=== PATIENT | female | born 2000 | race Hispanic/Latino ===

== ENCOUNTER 2024-01-11 16:11 | Inpatient (IN) | payer OTHER ==
[~2024-01-11] VITALS: Ht 162.6 cm; Wt 95.7 kg
--- NOTE | ~2024-01-11 | OR ---
[facility] [address] [place], [place] [address] Draft DATE OF OPERATION: 01/18/2024 SURGEON: Carie Haynes DO PREOPERATIVE DIAGNOSES: 1. Intrauterine at 39 weeks gestation. 2. History of prior section. POSTOPERATIVE DIAGNOSES: 1. Intrauterine at 39 weeks gestation. 2. History of prior section. PROCEDURE PERFORMED: Repeat low transverse delivery. ANESTHESIA: Spinal with postoperative TAP block. SPINNING MULE OPERATOR: Gayla Morris MD. ESTIMATED BLOOD LOSS: 700 mL. COMPLICATIONS: None. SPECIMEN: None. DRAINS: Pereira to gravity. COMPLICATIONS: None. FINDINGS: Delivery of viable male , 7 pounds 3 ounces with Apgars of 8 and 9 born in the YOAV position with no nuchal cord and clear fluid via low transverse uterine incision. Normal uterus, tubes, and ovaries appreciated. PATIENT NAME: MARCO ZUNIGA OPERATIVE REPORT DATE OF : 02 REPORT #: [id number] PHYSICIAN: CARIE HAYNES (CHARLA) PCP: CARIE HAYNES (CHARLA) REPORT IS CONFIDENTIAL AND NOT TO BE RELEASED WITHOUT AUTHORIZATION [facility] [address] [place], [place] [address] Draft INDICATIONS: Ms. Zuniga is a very pleasant 23-year-old, G2, P1 with IUP at 39 weeks gestation, who presents for repeat low transverse delivery. Risks, benefits, and alternatives were discussed in detail with the patient. The patient understands and wishes to proceed with the procedure. PROCEDURE IN DETAIL: The patient was taken the OR. A time-out was performed to confirm correct patient, correct procedure. Spinal anesthesia was adequately established. The patient was prepped and draped in dorsal lithotomy position with her feet in Yellofin stirrups. ICPs were on and running and no preoperative heparin was indicated, although patient did receive Ancef 2 g preoperatively per SCIP protocol. Once spinal was noted to be adequate, a Pfannenstiel skin incision was made through the prior scar and carried down to the fascia. The fascia was nicked in the midline with surgical scalpel and extended bilaterally using curved Meza scissors. The fascia was grasped with Gaby's, elevated, and the underlying rectus muscle dissected off bluntly and sharply. The rectus was divided in the midline. The peritoneum was entered bluntly. Peritoneal incision was extended cephalad, caudad using blunt and sharp dissection. No pelvic adhesions were noted and the lower uterine segment was identified. An Massimo self-retractor was placed without difficulty and hysterotomy was performed using a surgical scalpel. Clear amniotic fluid was noted and hysterotomy was extended bilaterally using blunt dissection. The surgeon's hand was placed in the uterine cavity and the head delivered with the assistance of fundal pressure into the abdomen. The remainder of the delivered easily and was vigorous and cried upon delivery. Cord was doubly clamped, cut, and the handed to the waiting pediatric team for further care. Cord blood was obtained for routine analysis. The placenta was expressed, intact with a centrally inserted three-vessel cord. An initial gush of blood was noted and this was quickly made hemostatic with bimanual pressure. Pitocin per protocol and clamping. The uterus was then cleared of any remaining products of conception or clot. Hysterotomy was repaired in two layers of 0 Monocryl. The first being a running locked layer and the second being a running nonlocked imbricating layer in the vertical manner. Excellent hemostasis was appreciated. The pelvis was irrigated and found to be hemostatic. Normal uterus, tubes, and ovaries were appreciated. The Massimo self retractor was removed and peritoneum was reapproximated using 2-0 Vicryl in a running nonlocked manner. Rectus was made hemostatic with judicious use of Bovie electrocautery and rectus was plicated in the midline with #0 Vicryl sutures in three interrupted stitches. The fascia was reapproximated using 0 Vicryl in a running nonlocked manner. Subcu was irrigated, made hemostatic with judicious use of Bovie electrocautery and then closed with a running suture of 3-0 Vicryl. Skin was then reapproximated using surgical sarmad. The uterus was Crede'd for scant amount of blood and the patient remained in the PACU for postoperative TAP block per Anesthesia. PATIENT NAME: MARCO ZUNIGA OPERATIVE REPORT DATE OF : 02 REPORT #: [id number] PHYSICIAN: CARIE HAYNES (CHARLA) PCP: ACRIE HAYNES (CHARLA) DO REPORT IS CONFIDENTIAL AND NOT TO BE RELEASED WITHOUT AUTHORIZATION [address] [address] Draft Sponge, needle, and instrument counts were correct x2 at the end of the procedure. Dr. Morris was present and participated in all portions of the procedure. DO CHRIS Sotelo/DOT /[id number] Copies: ~ PATIENT NAME: MARCO ZUNIGA OPERATIVE REPORT DATE OF : 02 REPORT #: [id number] PHYSICIAN: CARIE HAYNES (CHARLA) PCP: CARIE HAYNES (CHARLA) REPORT IS CONFIDENTIAL AND NOT TO BE RELEASED WITHOUT AUTHORIZATION
[2024-01-18] MEDS ORDERED: LACTATED RINGER'S 1,000 ML IV SCH ×2 (05:00→09:25)
[2024-01-18] MEDS ORDERED: LACTATED RINGER'S 2,000 ML IV PRN (05:00)
[2024-01-18 05:33] VITALS: BP 126/85
[2024-01-18 05:40] LABS: HEMATOCRIT 34.5 % (35.0-50.0); HEMOGLOBIN 11.3 g/dL (12.0-18.0); MCH 27.2 (27-36); MCHC 32.7 g/dl (30-36); MCV 83.1 fl (81-99); RBC 4.16 M/ul (4.3-5.7); RDW 15.2 (10.5-15.0)
[2024-01-18 06:13] LABS: ABO O; ANTIBODY SCREEN NEGATIVE; RH POSITIVE
[2024-01-18 06:14] LABS: AMPHETAMINES, URINE NEGATIVE (NEGATIVE); BARBITURATES, URINE NEGATIVE (NEGATIVE); BENZODIAZEPINE, URINE NEGATIVE (NEGATIVE); BUPRENORPHINE, URINE NEGATIVE (NEGATIVE); CANNABINOID, URINE NEGATIVE (NEGATIVE); COCAINE, URINE NEGATIVE (NEGATIVE); ECSTASY, URINE NEGATIVE (NEGATIVE); FENTANYL, URINE NEGATIVE (NEGATIVE); METHADONE, URINE NEGATIVE (NEGATIVE); OPIATES, URINE NEGATIVE (NEGATIVE); OXYCODONE, URINE NEGATIVE (NEGATIVE); PHENCYCLIDINE, URINE NEGATIVE (NEGATIVE)
[2024-01-18] MEDS ORDERED: SOD+POT BICARB/CITRIC ACID 2 EA TABLET.EFF PO SCH (07:00)
[2024-01-18] MEDS ORDERED: CEFAZOLIN SODIUM 2 GM/20 ML SYR IV SCH (07:00)
[2024-01-18] MEDS ORDERED: MORPHINE SULFATE 1 MG/ML VIAL ONE (07:09)
[2024-01-18] MEDS ORDERED: fentaNYL citrate 100 MCG/2 ML VIAL ONE (07:09)
[2024-01-18] MEDS ORDERED: BUPIVACAINE 0.75% IN DEXTROSE 2 ML AMP ONE (07:09)
[2024-01-18] MEDS ORDERED: LIDOCAINE HCL 2% 5 ML SDV ONE (07:10)
[2024-01-18] MEDS ORDERED: OXYTOCIN 10 UNITS/ML VIAL ONE (07:10)
[2024-01-18] MEDS ORDERED: ondansetron HCL 4 MG/2 ML VIAL ONE (07:10)
[2024-01-18] MEDS ORDERED: Ropivacaine HCl 0.5% 30 ML VIAL ONE (08:25)
[2024-01-18] MEDS ORDERED: DEXAMETHASONE SOD PHOS 4 MG/ML VIAL ONE (08:25)
[2024-01-18] MEDS ORDERED: SODIUM CHLORIDE 0.9% 40 ML IV ONE (08:25)
[2024-01-18] MEDS ORDERED: dexmedeTOMIDine HCl 200 MCG/2 ML VIAL ONE (08:25)
[2024-01-18] MEDS ORDERED: OXYCODONE HCL 5 MG TAB PO PRN (09:30)
[2024-01-18] MEDS ORDERED: bisacodyL 10 MG SUPP PR PRN (09:30)
[2024-01-18] MEDS ORDERED: OXYCODONE/APAP 5/325 TAB PO PRN (09:30)
[2024-01-18] MEDS ORDERED: PROCHLORPERAZINE EDISYLATE 10 MG/2 ML VIAL IV PRN (09:30)
[2024-01-18] MEDS ORDERED: METOCLOPRAMIDE HCL 10 MG/2 ML SDV IV PRN (09:30)
[2024-01-18] MEDS ORDERED: OXYTOCIN/0.9 % SODIUM CHLORIDE 500 ML IV SCH (09:30)
[2024-01-18] MEDS ORDERED: HYDROCODONE/ACETA 5/325 TAB PO PRN (09:30)
[2024-01-18] MEDS ORDERED: PROMETHAZINE HCL 25 MG TAB PO PRN (09:30)
[2024-01-18] MEDS ORDERED: PROMETHAZINE HCL 25 MG SUPP PR PRN (09:30)
[2024-01-18 09:42] VITALS: BP 97/54
[2024-01-18] MEDS ORDERED: fentaNYL citrate 50 MCG/ML SDV IV PRN (09:45)
[2024-01-18] MEDS ORDERED: diphenhydrAMINE HCL 50 MG/ML VIAL IV PRN ×2 (09:45)
[2024-01-18] MEDS ORDERED: HYDROmorphone HCL 1 MG/ML SYR IV PRN (09:45)
[2024-01-18] MEDS ORDERED: IBLOOD GLUCOSE TEST STRIP 1 EA TEST VI PRN (09:45)
[2024-01-18] MEDS ORDERED: ondansetron HCL 4 MG/2 ML VIAL IV PRN ×2 (09:45)
[2024-01-18] MEDS ORDERED: NALOXONE HCL 0.4 MG SYR IV PRN ×2 (09:45)
--- NOTE | 2024-01-18 10:24 | NUR ---
01/18/24 1024 Sheets,[place] 0910 PT ARRIVED TO ROOM WITH AT BEDSIDE HOLDING BABY. PT DENIES CONCERNS, PT UNABLE TO MOVE HER FEET AND EDUCATION GIVEN. IV IN LEFT HAND AND WNL, LR WITH 30 PIT INFUSING. 0915 BABY TO CHEST WITH [facility] RN. PT CONTINUES TO DENY CONERNS. 0920 SMALL AMOUNT OF DRAINAGE NOTED WITH FUNDAL MASSAGE AND SMALL CLOTS NOTED. SPINAL LEVEL 6-T AND PT DENIES SOB AND DIZZINESS, EDUCAITON GIVEN. PT SIPPING WATER PER REQUEST. 0940 F[facility] RN AT BEDSIDE AND FUNDAL MASSGE DONE WITH MORE SMALL CLOTS AND SOME DRAINAGE. [facility] AWARE AND VSS. REPORT TO [facility] RN. CALL LIGHT IN PLACE AND BED PLUGGED IN. ALL QUESTIONS ANSWERED. NEW PAD PLACED.
[2024-01-18] MEDS ORDERED: SIMETHICONE 125 MG TABLET CHEWABLE PO SCH (11:00)
[2024-01-18] MEDS ORDERED: TRANEXAMIC ACID IN NACL,ISO-OS 100 ML IV ONE (11:08)
[2024-01-18] MEDS ORDERED: TRANEXAMIC ACID IN NACL,ISO-OS 1,000 MG/100 ML PIGGYBACK IV ONE (11:15)
--- NOTE | 2024-01-18 11:24 | PR ---
[facility] [address] [facility] [place], [place] [address] Signed PP Progress Notes Datetime Report Generated by CPN: 01/18/2024 11:25 SUBJECTIVE: [id number] Pain: Within Normal Limits Nausea/Vomiting: Denies Flatus: No Bowel Movement: No Vital Signs: [id number] Vital Signs: Reviewed; Within Normal Limits Cardiovascular: Normal Respiratory: Normal Abdomen/Uterus: Normal Lochia: Normal Vulva/Perineum: Not Done Breasts: Not Done CVA Tenderness: Normal Extremities: Normal Incision: Normal Progress: Normal Exam Comments: Fundus firm U-2 nontender. Scant bleeding and no intrauterine clot. IMPRESSION/PLAN/PROCEDURES: [id number] Impression: Normal Progression Plan: Continue Present Management Progress Notes: Pt seen and evaluated for some bleeding. Total blood loss _850cc per RN. Bimanual exam performed w/ firm uterus and scant amount of mucous/blood expressed. No intrauterine clot or retained POCs. TXA 1000mg running and will add cytotec [place] 1000mcg. All questions answered. Will monitor closely. If QBL >1000mL, will draw labs per protocol. Signing Physician: Carie Haynes DO Copies: ~ *Electronically Signed* 01/18/24 1129 CARIE HAYNES (CHARLA) DO PATIENT NAME: MARCO OSEGUERA PROGRESS NOTE DATE OF : 02 PHYSICIAN: CARIE HAYNES (JD) DO RPT #: [id number] REPORT IS CONFIDENTIAL AND NOT TO BE RELEASED WITHOUT AUTHORIZATION
[2024-01-18] MEDS ORDERED: KETOROLAC TROMETHAMINE 30 MG/ML VIAL IV SCH (14:00)
[2024-01-18 15:29] LABS: HEMATOCRIT 36.6 % (35.0-50.0); HEMOGLOBIN 11.9 g/dL (12.0-18.0); MCH 27.1 (27-36); MCHC 32.4 g/dl (30-36); MCV 83.5 fl (81-99); RBC 4.38 M/ul (4.3-5.7); RDW 15.2 (10.5-15.0)
[2024-01-18 15:51] LABS: PARTIAL THROMBOPLASTIN TIME 26.1 Sec (22.9-41.3)
[2024-01-18 15:53] LABS: INR 0.98 (0.80-1.30); PROTIME 12.3 Sec (11.2-14.2)
[2024-01-18] MEDS ORDERED: ENOXAPARIN SODIUM 40 MG/0.4 ML SYR SUB-Q SCH (16:00)
[2024-01-18] MEDS ORDERED: SENNOSIDES/DOCUSATE 1 EA TAB PO SCH (21:00)
[2024-01-19 05:34] LABS: HEMATOCRIT 29.4 % (35.0-50.0); HEMOGLOBIN 9.8 g/dL (12.0-18.0); MCH 27.4 (27-36); MCHC 33.3 g/dl (30-36); MCV 82.4 fl (81-99); RBC 3.57 M/ul (4.3-5.7); RDW 15.2 (10.5-15.0)
[2024-01-19] MEDS ORDERED: ondansetron HCL 4 MG/2 ML VIAL IV PRN (09:45)
--- NOTE | 2024-01-19 10:29 | PR ---
[facility] [address] [facility] [place], [place] [address] Signed PP Progress Notes Datetime Report Generated by CPN: 01/19/2024 10:29 SUBJECTIVE: [id number] Pain: Within Normal Limits Nausea/Vomiting: Denies Flatus: Yes Bowel Movement: No Vital Signs: [id number] Vital Signs: Reviewed; Within Normal Limits Cardiovascular: Normal Respiratory: Normal Abdomen/Uterus: Normal Lochia: Normal Vulva/Perineum: Not Done Breasts: Not Done CVA Tenderness: Normal Extremities: Normal Incision: Normal Progress: Normal Exam Comments: Fundus firm U-2 nontender IMPRESSION/PLAN/PROCEDURES: [id number] Impression: Normal Progression Plan: Continue Present Management Progress Notes: Doing well. Hgb 9.8. No concerns. Anticipate d/c home tomorrow Signing Physician: Carie Haynes DO Copies: ~ *Electronically Signed* 01/19/24 1029 CARIE HAYNES (CHARLA) DO PATIENT NAME: MARCO OSEGUERA PROGRESS NOTE DATE OF : 02 PHYSICIAN: CARIE HAYNESD) DO RPT #: [id number] REPORT IS CONFIDENTIAL AND NOT TO BE RELEASED WITHOUT AUTHORIZATION
[2024-01-19] MEDS ORDERED: IBUPROFEN 600 MG TAB PO SCH (14:00)
--- NOTE | 2024-01-20 08:07 | PR ---
[facility] [address] [facility] [place], [place] [address] Signed PP Progress Notes Datetime Report Generated by CPN: 01/20/2024 08:07 SUBJECTIVE: [id number] Pain: Within Normal Limits Nausea/Vomiting: Denies Flatus: Yes Bowel Movement: No Vital Signs: [id number] Vital Signs: Reviewed; Within Normal Limits Cardiovascular: Normal Respiratory: Normal Abdomen/Uterus: Normal Lochia: Normal Vulva/Perineum: Not Done Breasts: Not Done CVA Tenderness: Normal Extremities: Normal Incision: Normal Progress: Normal Exam Comments: Fundus firm U-2 nontender. Incision healing well IMPRESSION/PLAN/PROCEDURES: [id number] Impression: Normal Progression Plan: Remove Evelyne; Discharge Progress Notes: Pt seen and examined. Doing well. Ambulating, voiding, and tolerating full diet. Pain and lochia minimal. well. No fevers/chills. Desires d/c home today. Reviewed d/c meds and instructions. Considering pp vasectomy. Will remove evelyne prior to discharge. No other questions or concerns. Signing Physician: Carie Haynes DO Copies: ~ *Electronically Signed* 01/20/24 08 CARIE HAYNES (CHARLA) DO PATIENT NAME: MARCO OSEGUERA PROGRESS NOTE DATE OF : 02 PHYSICIAN: CARIE HAYNES (JD) DO RPT #: [id number] REPORT IS CONFIDENTIAL AND NOT TO BE RELEASED WITHOUT AUTHORIZATION
== END 2024-01-20 13:16 | disposition home or self-care (01) | DRG 788 ==
LOC: FBC 01-18 04:55
PROVIDERS: Obstetrics & Gynecology; ADMIT Obstetrics & Gynecology; ATTEND Obstetrics & Gynecology
PROC: 10D00Z1 Extraction of Products of Conception, Low, Open Approach (ICD-10-PCS; principal; 2024-01-18 07:30)
DX: O34.211 Maternal care for low transverse scar from previous cesarean delivery (principal); Z3A.39 39 weeks gestation of pregnancy; Z37.0 Single live birth; O99.52 Diseases of the respiratory system complicating childbirth; J45.909 Unspecified asthma, uncomplicated
CPT/HCPCS: 01961; 36415; 76942; 80307; 85027; 85384; 85610; 85730; 86850; 86900; 86901; A9270; J0690; J1100; J1650; J1885; J2001; J2274; J2405; J2590; J2795; J3010; J7121